=== PATIENT | female | born 1975 | race Caucasian/White ===

== ENCOUNTER 2016-11-11 10:35 | Emergency (ER) | payer SELFPAY ==
[~2016-11-11] VITALS: Ht 152.4 cm; Wt 57.0 kg
[2016-11-11 10:36] VITALS: BP 135/95; PULSE 116; RESP 24; TEMP 97.8; O2SAT 99
[2016-11-11] MEDS ORDERED: PROZ20CA11 PO (10:53)
--- NOTE | 2016-11-11 11:05 | PD ---
HPI Chief Complaint: Chest Pain Time Seen by Provider: 11:05 Travel History International Travel<30 days: No Contact w/Intl Traveler<30days: No Traveled to known affect area: No History of Present Illness HPI 41-year-old female with PMH of SVT and left nephrectomy presents to the ED for evaluation of 04/12 right-sided chest pain. Onset this morning ~6 AM when the patient was waking. Described as constant, aching. Accompanied by mild nausea. Worsened by certain motions and deep breaths. Patient endorses frequent palpitations secondary to history of SVT. Patient denies radiation of the pain, diaphoresis, fever , chills, loss of appetite, changes in bowel habits. She can identify no injury to the area. She has never had a cardiac workup. She has never had a mammogram. She is unsure of any family history of [place]. PFSH Past Medical History Cardiovascular Problems: Yes (SVT) Tetanus Vaccination: < 5 Years ?: Not Past Surgical History Surgical History: No Previous Surgery Genitourinary Surgery: Yes (NEPHRECTOMY) Hysterectomy: Yes Social History Alcohol Use: Yes Tobacco Use: No Substance Use: No Allergies-Medications (Allergen,Severity, Reaction): Coded Allergies: No Known Allergies (Unverified , 11/11/16) Reported Meds & Prescriptions Reported Meds & Active Scripts Active Robaxin (Methocarbamol) 500 Mg Tab 500 Mg PO TID Ibuprofen 800 Mg Tab 800 Mg PO Q8H Reported Prozac (Fluoxetine HCl) 20 Mg Cap 60 Mg PO DAILY Review of Systems Except as stated in HPI: all other systems reviewed are Neg Physical Exam Narrative GENERAL: Well-nourished, well-developed nontoxic appearing white female in no acute distress. SKIN: Focused skin assessment warm/dry. HEAD: Normocephalic. EYES: No scleral icterus. No injection or drainage. NECK: Supple, trachea midline. No JVD or lymphadenopathy. CARDIOVASCULAR: Regular rate and rhythm without murmurs, gallops, or rubs. 2+ DP and radial pulses bilaterally. CHEST: TTP along the medial aspect- 5 o'clock position- of the right breast. No ecchymosis or palpable mass. No deformity or crepitus. No retractions or use of accessory muscles. RESPIRATORY: Breath sounds clear and equal bilaterally. No accessory muscle use. GASTROINTESTINAL: Abdomen soft, non-tender, nondistended. Negative Marinelli's sign. No hepatosplenomegaly. Active bowel sounds. MUSCULOSKELETAL: No cyanosis, or edema. Patient is ambulatory and moves the extremities spontaneously. BACK: Nontender without obvious deformity. No CVA tenderness. Data Data Last Documented VS Vital Signs Date Time Temp Pulse Resp B/P Pulse Ox O2 Delivery O2 Flow Rate FiO2 11/11/16 11:47 92 18 121/90 98 Room Air 11/11/16 10:36 97.8 Orders Electrocardiogram (11/11/16 10:51) Electrocardiogram (11/11/16 11:14) Ckmb (Isoenzyme) Profile (11/11/16 11:14) Complete Blood Count With Diff (11/11/16 11:14) Comprehensive Metabolic Panel (11/11/16 11:14) Prothrombin Time / Inr (Pt) (11/11/16 11:14) Act Partial Throm Time (Ptt) (11/11/16 11:14) Troponin I (11/11/16 11:14) Lipase (11/11/16 11:14) Chest, Single Ap (11/11/16 11:14) Ecg Monitoring (11/11/16 11:14) Iv Access Insert/Monitor (11/11/16 11:14) Oximetry (11/11/16 11:14) Ed Urine Pregnancytest Poc (11/11/16 11:14) Urinalysis - C+S If Indicated (11/11/16 11:14) Blood Pressure (11/11/16 11:14) Sodium Chlor 0.9% 1000 Ml Inj (Ns 1000 M (11/11/16 11:15) Morphine Inj (Morphine Inj) (11/11/16 11:15) Ondansetron Inj (Zofran Inj) (11/11/16 11:15) CKMB (11/11/16 11:00) CKMB% (11/11/16 11:00) Labs Laboratory Tests Test 11/11/16 11:00 White Blood Count 6.2 TH/MM3 Red Blood Count 4.62 MIL/MM3 Hemoglobin 13.6 GM/DL Hematocrit 40.5 % Mean Corpuscular Volume 87.6 FL Mean Corpuscular Hemoglobin 29.4 PG Mean Corpuscular Hemoglobin 33.6 % Concent Red Cell Distribution Width 13.5 % Platelet Count 242 TH/MM3 Mean Platelet Volume 9.4 FL Neutrophils (%) (Auto) 56.1 % Lymphocytes (%) (Auto) 30.2 % Monocytes (%) (Auto) 9.9 % Eosinophils (%) (Auto) 3.7 % Basophils (%) (Auto) 0.1 % Neutrophils # (Auto) 3.5 TH/MM3 Lymphocytes # (Auto) 1.9 TH/MM3 Monocytes # (Auto) 0.6 TH/MM3 Eosinophils # (Auto) 0.2 TH/MM3 Basophils # (Auto) 0.0 TH/MM3 CBC Comment DIFF FINAL Differential Comment Prothrombin Time 10.6 SEC Prothromb Time International 1.0 RATIO Ratio Activated Partial 26.4 SEC Thromboplast Time Urine Color YELLOW Urine Turbidity CLEAR Urine pH 7.5 Urine Specific [place] 1.017 Urine Protein NEG mg/dL Urine Glucose (UA) NEG mg/dL Urine Ketones NEG mg/dL Urine Occult Blood NEG Urine Nitrite NEG Urine Bilirubin NEG Urine Urobilinogen LESS THAN 2.0 MG/DL Urine Leukocyte Esterase NEG Urine WBC LESS THAN 1 /hpf Urine Squamous Epithelial <1 /hpf Cells Urine Mucus FEW /lpf Microscopic Urinalysis Comment CULT NOT INDICATED Sodium Level 140 MEQ/L Potassium Level 3.6 MEQ/L Chloride Level 104 MEQ/L Carbon Dioxide Level 29.0 MEQ/L Anion Gap 7 MEQ/L Blood Urea Nitrogen 11 MG/DL Creatinine 0.75 MG/DL Estimat Glomerular Filtration 86 ML/MIN Rate Random Glucose 77 MG/DL Calcium Level 8.9 MG/DL Total Bilirubin 0.3 MG/DL Aspartate Amino Transf 19 U/L (AST/SGOT) Alanine Aminotransferase 20 U/L (ALT/SGPT) Alkaline Phosphatase 71 U/L Total Creatine Kinase 176 U/L Creatine Kinase MB 3.6 NG/ML Troponin I LESS THAN 0.02 NG/ML Total Protein 7.9 GM/DL Albumin 4.0 GM/DL Lipase 172 U/L [facility] Medical Decision Making Medical Screen Exam Complete: Yes Emergency Medical Condition: Yes Differential Diagnosis musculoskeletal pain versus breast mass versus chest pain versus ACS versus cholecystitis versus other Narrative Course 41-year-old female with PMH of SVT and left nephrectomy presents to the ED for evaluation of 10/10 right-sided chest pain. Onset this morning ~6 AM when the patient was waking. Described as constant, aching. Accompanied by mild nausea. Worsened by certain motions and deep breaths. Patient endorses frequent palpitations secondary to history of SVT. Patient denies radiation of the pain, diaphoresis, fever , chills, loss of appetite, changes in bowel habits. She can identify no injury to the area. She has never had a cardiac workup. She has never had a mammogram. She is unsure of any family history of [place]. Pulse 116, BP 135/95 on presentation. Improved to Pulse 92, BP 121/90 in the exam room. Physical exam reveals a nontoxic appearing white female in no acute distress. Chest is clear to auscultation bilaterally with no appreciable M/R/G. There is reproducible tenderness in the 5 o'clock position under the right breast. No masses or ecchymosis. Abdomen is soft and nontender. Negative Marinelli's. Active bowel sounds. Equal pulses in the extremities. Patient was placed on continuous monitoring. IV was established. She was administered 4mg morphine, 4mg Zofran and 1L NS IV. CBC: No leukocytosis or anemia. CMP: Unremarkable. UA: No culture indicated Coags: INR 1.0 Cardiac enzymes: negative x 1 EKG: Rate 91, sinus rhythm. NJ interval 147, QRS 73, QTC 402. Normal axis. No ST elevations or depressions. Reviewed by Dr. Bucio. Chest x-ray: No acute disease per radiology read. On recheck the patient reports improvement of her pain. I discussed the results of the workup with the patient. My suspicion for cardiac origin of this pain is very low. Her pain is right sided and reproducible. This is musculoskeletal pain versus breast mass. Patient was provided a short course of anti-inflammatories and muscle relaxants. I reminded the patient to have her baseline mammogram this year. She is instructed to take medication as prescribed, return to normal, gentle activity as tolerated, follow-up with her primary care provider. Discussed reasons to return to the ED. The patient indicated understanding of the instructions and is agreeable to the care plan. The patient is stable and discharged home. Diagnosis Primary Impression: Right-sided chest wall pain Referrals: Primary Care Physician Patient Instructions: Chest Wall Pain (ED), General Instructions Departure Forms: Tests/Procedures, Work Release Enter return to work date: November 12, 2016 Additional Instructions: Rest, hydrate. Return to normal, gentle activities as tolerated. 800 mg ibuprofen up to 3 times a day to reduce pain and inflammation. Muscle relaxants up to 3 times a day as needed for muscle spasm. Do not drive while taking muscle relaxants. Applying ice or heat to areas of soreness may help to improve your pain. Do not apply ice/ heat for longer than 20 m/h. Follow-up with your primary care provider this week. Screening mammogram is recommended for women at age 40. Return to the ED for any urgent or emergent medical condition. Med/Other Pt SpecificInfo: Prescription(s) given Scripts Methocarbamol (Robaxin)500 Mg [id number] Mg PO TID #10 TAB Ref 0 Prov:Sindy Bucio MD 11/11/16 Ibuprofen 800 Mg [id number] Mg PO Q8H #15 TAB Ref 0 Prov:Sindy Bucio MD 11/11/16 Disposition: 01 DISCHARGE HOME Condition: Stable Simran Rojo November 11, 2016 11:05
[2016-11-11] MEDS ORDERED: SODIUM CHLOR 0.9% 1000 ML INJ 1,000 ML IV ONE (11:15)
[2016-11-11] MEDS ORDERED: ONDANSETRON HCL 4 MG/2 ML VIAL IV PUSH ONE (11:15)
[2016-11-11] MEDS ORDERED: MORPHINE SULFATE 4 MG/ML INJ IV PUSH ONE (11:15)
[2016-11-11 11:47] VITALS: BP 121/90; PULSE 92; RESP 18; O2SAT 97; O2SAT 98
[2016-11-11 11:53] LABS: AUTOMATED NEUTROPHIL # 3.5 TH/MM3 (1.8-7.7); BASOPHIL % 0.1 % (0.0-2.0); EOSINOPHIL # 0.2 TH/MM3 (0-0.4); EOSINOPHIL % 3.7 % (0.0-4.0); HEMATOCRIT 40.5 % (35.0-46.0); HEMO FLAGS DIFF FINAL; LYMPH % 30.2 % (9.0-44.0); LYMPHOCYTE # 1.9 TH/MM3 (1.0-4.8); MEAN CELL VOLUME 87.6 FL (80.0-100.0); MEAN CORPUSCULAR HEMOGLOBIN 29.4 PG (27.0-34.0); MEAN CORPUSCULAR HGB CONC 33.6 % (32.0-36.0); MONO % 9.9 % (0.0-8.0); NEUT % 56.1 % (16.0-70.0); PLATELET COUNT 242 TH/MM3 (150-450); RED BLOOD COUNT 4.62 MIL/MM3 (4.00-5.30); RED CELL DISTRIBUTION WIDTH 13.5 % (11.6-17.2); WHITE BLOOD COUNT 6.2 TH/MM3 (4.0-11.0)
[2016-11-11 11:59] LABS: BLOOD, URINE NEG (NEG); COMMENT (UR) CULT NOT INDICATED; CULTURE IF INDICATED CULT NOT INDICATED; GLUCOSE,URINE NEG (NEG); KETONE, URINE NEG (NEG); MUCUS URINE FEW /lpf (OCC); NITRITE,URINE NEG (NEG); PH, URINE 7.5 (5.0-8.5); SQUAMOUS EPITHELIAL CELL URINE <1 /hpf (0-5); URINE COLOR YELLOW (YELLW/STRAW)
[2016-11-11 12:01] LABS: APTT (PATIENT) 26.4 SEC (24.3-30.1); PROTHROMBIN TIME - PATIENT 10.6 SEC (9.8-11.6)
[2016-11-11 12:08] LABS: ALT (GPT) 20 U/L (10-53); ANION GAP 7 MEQ/L (5-15); AST (GOT) 19 U/L (15-37); BLOOD UREA NITROGEN 11 MG/DL (7-18); CHLORIDE 104 MEQ/L (98-107); GLOMERULAR FILTRATION RATE 86 ML/MIN (>89); POTASSIUM 3.6 MEQ/L (3.5-5.1); SODIUM (NA) 140 MEQ/L (136-145)
--- NOTE | 2016-11-11 12:09 | RADRPT ---
EXAM DATE/TIME: 11/11/2016 11:30 [facility] COMPARISON: No previous studies available for comparison. INDICATIONS : Chest pains mid sternal, history tachycardia. MEDICAL HISTORY : Tachycardia SURGICAL HISTORY : None. ENCOUNTER: Initial ACUITY: 1 day PAIN SCORE: 7/10 LOCATION: Bilateral chest FINDINGS: A single view of the chest demonstrates the lungs to be symmetrically aerated without evidence of mas s, infiltrate or effusion. The cardiomediastinal contours are unremarkable. Osseous structures are intact. CONCLUSION: No acute disease. Guanakito Ferrera MD on November 11, 2016 at 12:06 Board Certified Radiologist. This report was verified electronically.
[2016-11-11 12:11] LABS: ALKALINE PHOSPHATASE 71 U/L (45-117); CREATINE KINASE 176 U/L (26-192); TOTAL BILIRUBIN ADULT 0.3 MG/DL (0.2-1.0)
[2016-11-11 12:24] LABS: CKMB 3.6 NG/ML (0.5-3.6)
[2016-11-11] MEDS ORDERED: ROBA500T PO (12:30)
[2016-11-11] MEDS ORDERED: IBUP800T23 PO (12:30)
--- NOTE | 2016-11-11 15:19 | EKG ---
Date Performed: 11/11/2016 Time Performed: 10:56:08 PTAGE: 41 years EKG: Sinus rhythm NORMAL ECG NO PREVIOUS TRACING DOCTOR: Ildefonso Long Interpretating Date/Time 11/11/2016 15:18:20
== END 2016-11-11 13:10 | disposition home or self-care (01) ==
LOC: NEPC 10:35
DX: R07.89 Other chest pain (principal); R11.0 Nausea; R00.2 Palpitations
CPT/HCPCS: 71010; 80053; 81001; 82550; 82552; 83690; 84484; 84703; 85025; 85610; 85730; 93005; 96374; 96375; 99284; J2270; J2405; J7030